=== PATIENT | male | born 1975 | race Two or more races ===

== ENCOUNTER 2021-06-19 19:20 | Emergency (ER) | payer BC, SELFPAY ==
[~2021-06-19] VITALS: Ht 185.4 cm; Wt 136.1 kg
[2021-06-19 19:30] VITALS: BP_SYST 131
--- NOTE | 2021-06-19 19:30 | NUR ---
Patient triaged and placed in tent. VSS and patient appears in no acute distress at this time.awaiting available bed, and MD notified of need for MSE.
--- NOTE | 2021-06-19 20:30 | NUR ---
Pt sts he will come back alejandra .
== END 2021-06-19 20:30 | disposition left against medical advice (07) ==
LOC: SED 19:20
DX: U07.1 COVID-19 (principal); Z53.21 Procedure and treatment not carried out due to patient leaving prior to being seen by health care provider